=== PATIENT | male | born 1990 | race Caucasian/White ===

== ENCOUNTER 2019-11-22 09:09 | Inpatient (IN) | payer SELFPAY ==
[2019-11-22] MEDS ORDERED: Nitroglycerin 0.4 MG TAB (25 Tab Bottle) PO PRN (10:17)
[2019-11-22] MEDS ORDERED: Senokot S 8.6-50 MG TAB PO PRN (10:18)
[2019-11-22] MEDS ORDERED: Calcium Carbonate 500 MG ChewTAB PO PRN (10:18)
[2019-11-22] MEDS ORDERED: Acetaminophen 325 MG TAB PO PRN (10:18)
[2019-11-22] MEDS ORDERED: cloNIDine 0.1 MG TAB PO PRN (10:19)
[2019-11-22] MEDS ORDERED: Metoprolol Tartrate 25 MG TAB PO SCH (10:30)
[2019-11-22] MEDS ORDERED: Metoprolol Tartrate 5 MG/5 ML VIAL ONE (10:43)
[2019-11-22] MEDS ORDERED: Insulin Regular 300 UNITS/3 ML VIAL ONE (10:43)
[2019-11-22 10:45] LABS: Anion Gap 15 mmol/L (10-20); BUN (Urea Nitrogen) 12 mg/dL (8.9-20.6); Calc. Creatinine Clearance 0 mL/min (70-130); Calcium 9.1 mg/dL (7.8-10.44); Carbon Dioxide 23 mmol/L (22-29); Chloride 105 mmol/L (98-107); Estimated GFR-MDRD 85; Glucose 282 mg/dL (70-105); Magnesium 1.8 mg/dL (1.6-2.6); Potassium 4.2 mmol/L (3.5-5.1); Sodium 139 mmol/L (136-145)
[2019-11-22] MEDS ORDERED: Insulin Regular 300 UNITS/3 ML VIAL SC PRN ×2 (10:46)
[2019-11-22] MEDS ORDERED: Dextrose 50% Abboject 50 ML SYRINGE SLOW IVP PRN (10:46)
[2019-11-22] MEDS ORDERED: Dextrose 5% in Water 1,000 ML IV PRN (10:46)
[2019-11-22 10:49] LABS: Troponin I 0.108 ng/mL (< 0.028)
[2019-11-22] MEDS ORDERED: Aspirin 325 mg Enteric Coated Tablet PO SCH (11:00)
[2019-11-22] MEDS ORDERED: Magnesium 2 GM/50 ML 2 GM in Premix Bag 1 BAG IVPB SCH (11:15)
[2019-11-22 12:19] VITALS: BMI 54.3
--- NOTE | 2019-11-22 18:14 | HP ---
PRIMARY CARE: Dr. Toi Jose. CHIEF COMPLAINT: Chest discomfort. HISTORY OF PRESENT ILLNESS: The patient is a 29-year-old male with paroxysmal supraventricular tachycardia, status post ablation in 2013 at [place], presented to the emergency room at [facility] with above complaints. The patient presented to the emergency room around 7:00 am with chest discomfort that was gradual in onset, associated with diaphoresis and palpitations. He was short of breath on mild exertion. He felt lightheaded, however denies any syncope. He denies recent immobilization, travel, cough, fever, or heartburn. No recent immobilization or travel reported. In the emergency room, his workup was consistent with narrow complex tachycardia with heart rate of 283, requiring emergent cardioversion. He is currently in sinus rhythm. He received aspirin along with IV fluids in the emergency room. He was transferred to this facility for hospital admission. PAST MEDICAL HISTORY: 1. Paroxysmal supraventricular tachycardia, status post ablation in 2013 at [place]. 2. Diabetes mellitus type 2, currently not on any medication. 3. History of muscular dystrophy. PAST SURGICAL HISTORY: Cardiac ablation in 2013. ALLERGIES: PENICILLIN. CURRENT HOME MEDICATIONS: Reviewed with the patient and none. SOCIAL HISTORY: The patient denies any drug use. He drinks alcohol socially. He currently uses tobacco. He has smoked on and off for last 10 years. FAMILY HISTORY: Positive for cancer. No premature coronary artery disease in his family. REVIEW OF SYSTEMS: All other review of systems were reviewed and were found negative. PHYSICAL EXAMINATION: VITAL SIGNS: On ER arrival at [facility], temperature 98.1, respirations of 14, pulse rate of 284, with blood pressure of 124/95 with O2 saturation of 100% on room air. GENERAL: A 29-year-old male, in no apparent distress. Denies any chest discomfort at this time. HEENT: Head, atraumatic and normocephalic. Sclerae anicteric. No oral lesion. NECK: Supple. No JVD. No carotid bruit. LUNGS: Clear to auscultation bilaterally. No wheezing, rales, or rhonchi. HEART: S1 and S2 present. Regular rate and rhythm. No significant rubs or gallops. ABDOMEN: Soft, nontender. Bowel sounds present. EXTREMITIES: No edema or calf tenderness. NEUROLOGICAL: Grossly nonfocal. Moves all 4 extremities. PSYCHIATRY: Alert, awake, and oriented x3. SKIN: Warm and dry. LYMPH NODES: No palpable lymph nodes in the neck. PERIPHERAL VASCULAR: Radial pulses palpable bilaterally. MUSCULOSKELETAL: No joint swelling tenderness. LABORATORY FINDINGS: CBC showed WBC 15.9 without left shift. Hemoglobin was 16.7, hematocrit 49.6. PT, INR, PTT normal range. Chemistries showed sodium of 139, potassium 3.4, chloride 98, bicarb 24, BUN of 13, creatinine 1.38, glucose of 323. Troponin initially was negative, repeat troponin was 0.108. Magnesium was 1.8. Urine drug screen was negative. IMAGING STUDIES: Chest x-ray by my review was negative for infiltrate or edema. EKG by my review as discussed above. IMPRESSION: 1. Narrow complex tachycardia, status post cardioversion. 2. Acute kidney injury on chronic kidney disease stage 2. 3. Hypokalemia. 4. Type 2 myocardial infarction secondary to #1. 5. Diabetes mellitus type 2, currently not taking any medications. 6. Morbid obesity with a BMI of 54.4. 7. Leukocytosis, unlikely to be infectious. 8. Hypomagnesemia. PLAN: The patient will be monitored on the telemetry unit. We will start low-dose beta blockers. Replace magnesium. His renal function has improved after IV fluids. The patient is tolerating p.o. Echocardiogram will be obtained. We will recheck troponin in a.m. We will check electrolytes in a.m. The patient understands the above plan of care. Job ID: [id number]
[2019-11-22] MEDS: Metoprolol Tartrate 25 MG TAB PO SCH (20:10)
--- NOTE | 2019-11-22 22:48 | CON ---
DATE OF CONSULTATION: PRIMARY CARE PHYSICIANS: Dr. Jose; the patient's primary care doctor here is going to be Dr. Jocelyn Mcconnell. REASON FOR CONSULTATION: Status post SVT and cardioversion. HISTORY OF PRESENT ILLNESS: Mr. Cazares is a 29-year-old male with a significant history of paroxysmal supraventricular tachycardia, status post ablation in 2013 at [place], hypothyroidism, diabetes. According to the patient, he was doing well since the ablation, but this morning, around 7 o'clock, the patient presented to the emergency department for chest tightness with shortness of breath. The patient was found to have heart rate up to 280s. The patient underwent emergent cardioversion. The patient was converted back to sinus rhythm at this moment. According to the patient, he has not had follow up with any associate professor of literacy or EP doctor since the cardioversion. He does not take any medication. At this moment, he does not check a vital sign at home. At this moment, the patient denied any shortness of breath, palpitation, fluttering, chest tightness, or discomfort, or any other cardiac complaints. The patient had echocardiograms done today with EF 55% to 60%, moderately dilated left atrium, trace tricuspid regurgitation, and mild pulmonary regurgitation. The patient cannot recall whether the patient had any other cardiac workup in the past except ablation in 2013. PAST MEDICAL HISTORY: Paroxysmal supraventricular tachycardia, status post ablation in 2013 at [place], diabetes type 2 and hypothyroidism. According to the patient, the patient had a TSH done about 5 months ago by the primary care doctor, which was normal according to the patient. PAST SURGICAL HISTORY: SVT ablation in 2013 at [place], groin hernia repair when the patient was around 8 years old. FAMILY HISTORY: There is significant family history of diabetes in the paternal side. The patient's mother due to complication of heart disease at the age of around 50s. SOCIAL HISTORY: He is . He is living with his girlfriend at this moment. He has 2 children, who are living well. He is current smoker and chewing tobacco. He drinks 8 to 15 beers on weekend. He denied illicit drug abuse. He does not exercise. He drinks 1 cup of coffee a day and 32 ounces of soda a day. ALLERGIES: HE IS ALLERGIC TO PENICILLIN. MEDICATIONS: He does not take any medication at this moment. REVIEW OF SYSTEMS: 12-point review of systems negative unless otherwise mentioned in the HPI. PHYSICAL EXAMINATION: VITAL SIGNS: Blood pressure 121/66, temperature 97.8, pulse is 61, respiratory rate is 12, O2 saturation 96% with room air. GENERAL: The patient is alert and oriented x4, not in acute distress. HEENT: Normocephalic, atraumatic. EYES: Extraocular muscle movement intact. ENT AND MOUTH: Oral and nasal mucosa moist without lesion. NECK: Supple. Normal range of motion. No JVD. RESPIRATORY: Clear to auscultate bilaterally. No wheezing, rales, or rhonchi noted. CARDIOVASCULAR: Regular rate and rhythm. Normal S1, S2. There are no S3 or S4. No significant murmur, hives, or thrill noted. 2+ pulses in the bilateral upper and lower extremities. No edema in the lower extremities. Carotid pulses are present without thrill. ABDOMEN: Soft, nontender. No mass to palpitate. Bowel sounds are present. MUSCULOSKELETAL: The patient able to move all extremities without any difficulty. The patient denied claudication. SKIN: Warm and dry. No lesion, rash, or erythema noted. NEUROLOGIC: The patient is alert and oriented x4, nonfocal. PSYCHIATRIC: The patient's mood is appropriate, but very sleepy because the patient was drinking last night per patient. LABORATORY DATA: WBC 15.8, hemoglobin 16.7, hematocrit 49.6, platelets 429. Sodium 139, potassium 4.2, BUN 12, creatinine 1.02, glucose 282. Magnesium 1.8. AST 57, ALT 65. Creatine kinase 251. Troponin 0.108, negative. BNP is 15.6, albumin is 4.6. UA is negative except glucose is more than 500. Drug screening is negative. Chest x-ray shows no acute cardiopulmonary process. ASSESSMENT AND PLAN: 1. Paroxysmal supraventricular tachycardia with status post cardioversion today. The patient has remained in sinus rhythm at this moment. He is on aspirin 81 mg once a day. The patient is on diltiazem 30 mg p.o. every 6 hours as needed if heart rate more than 120s. He is on metoprolol 25 mg twice a day also. We would like to continue to monitor and we would like to go ahead to order EP consult for this patient for further evaluation and treatment. 2. Diabetes type 2, which is managed by primary care doctors. 3. Hypothyroidism. Although the patient has a history of hypothyroidism, he has not taken any thyroid medicine, which may be causing abnormal arrhythmia. We would like to go ahead to check the patient's thyroid function also during this admission. 4. Current smoker and ETOH abuse. Strongly recommend to stop tobacco and EtOH abuse cessation. Thank you very much for Cardiology Service to participate in the care of this patient. We will follow along the patient's care team and make further recommendation as needed. Job ID: [id number]
--- NOTE | 2019-11-23 01:47 | CON ---
DATE OF CONSULTATION: 11/22/2019 INDICATION FOR CONSULTATION: A 29-year-old patient with a history of paroxysmal supraventricular tachycardia in the past who has undergone ablation in 2013 after having an episode of supraventricular tachycardia. At that time, he had been drinking alcohol, he presented to the emergency room, required 2 shocks and then apparently the next day underwent ablation of the SVT. He has not had any significant problems since that time. He does note some occasional little burps with his irregular heart rate or rapid rate at times, but otherwise he had been doing very well since 2013 until early this morning. He had actually been drinking some energy drinks yesterday. He smoked half a pack cigarettes every about 6 or 8 hours and also was drinking alcohol in the form of beer. He then apparently was during intercourse noticed his heart was beating really rapid and did not slow down and presented to the emergency room, was noted again to be in SVT. At that time, he requests that he be shocked out of the SVT and he underwent a shock at that time and converted back to sinus rhythm. Unfortunately, he has lost his job recently, he has been out of work, he has not been taking his medications. He does have metformin, which he has been taking for his diabetes and also was taking I believe Synthroid for his hypothyroidism. He has not been taking either of these medications recently and actually with the associated stress, lack of medications, tobacco abuse, alcohol and exertion all these added up to again trigger his supraventricular tachycardia. Otherwise, he is stable at this time and has had no other complaints. He said his skin felt tight during some of the SVT and he does have a history of tobacco abuse and some risk factors of coronary artery disease and says that he is a diabetic, but he has not had any recent stress test. He will undergo an echocardiogram for evaluation of his left ventricular systolic function as well as to any other structural abnormalities that may be present. PAST MEDICAL HISTORY: Please refer the notes dictated by the nurse practitioner. PAST SURGICAL HISTORY: Please refer the notes dictated by the nurse practitioner. MEDICATIONS: Please refer the notes dictated by the nurse practitioner. ALLERGIES: PLEASE REFER THE NOTES DICTATED BY THE NURSE PRACTITIONER. FAMILY HISTORY: Please refer the notes dictated by the nurse practitioner. REVIEW OF SYSTEMS: Please refer the notes dictated by the nurse practitioner. We have seen tis patient, we have discussed this patient together and I would agree with the assessment and plan. PHYSICAL EXAMINATION: GENERAL: Reveals a well-developed, well-nourished, overweight gentleman who is in no acute distress at this time. He is alert, he is oriented. VITAL SIGNS: Stable, 121/66 blood pressure, heart rate is 61 and regular, respiratory rate is 12. He is afebrile. O2 saturation is 96%. HEENT: Unremarkable. HEAD: Normocephalic and atraumatic. NECK: Carotid pulses are present. There were no bruits. There is no JVD. The thyroid is not enlarged. ENT: Oral mucosa was pink and moist. CHEST: Clear. CARDIOVASCULAR: Reveals a regular rate and rhythm. There were no gross murmurs, heaves, thrills, bruits, or rubs noted. ABDOMEN: Obese with positive bowel sounds. No organomegaly or masses are noted. EXTREMITIES: Femoral pulses are present. No clubbing, cyanosis, or edema. Pedal pulses are present. IMAGING: EKG at this time shows a normal sinus rhythm. There were no acute changes noted. He does have some evidence of possible left ventricular hypertrophy. His tracings from the emergency room when he was in SVT appeared to be definitely an SVT. It showed a heart rate of almost 300 beats per minute with the heart rate extremely at 282 beats per minute with his SVT. One of the original EKGs from this morning at 6:53 a.m., the original EKG is 283 beats per minute, it showed what appeared to be almost a wide-complex tachycardia, but it could be a bundle branch block associated with a rapid ventricular response. We will discuss this patient with the tech intern, but in the meantime, hopefully if he remains stable, he can be discharged home tomorrow on medications and can follow up as an outpatient with tech intern, if at all possible. However, he may need to undergo further evaluation while he is here in the hospital. We will see how he does over the next 24 hours. Once he converted out of the SVT, the complexes returned to normal without evidence of ischemia. He was on metoprolol 25 mg b.i.d., we will continue this medication and actually he is not on anything for his diabetes at this time except for a sliding scale. We will need to resume some type of medication as well as he is taking an aspirin at this time. We may need to increase the dose of the metoprolol, if his blood pressure tolerates it. We will await the results of the echocardiogram and will re-evaluate the patient tomorrow morning. Job ID: [id number]
[2019-11-23 04:54] LABS: Anion Gap 13 mmol/L (10-20); BUN (Urea Nitrogen) 11 mg/dL (8.9-20.6); Calc. Creatinine Clearance 242 mL/min (70-130); Calcium 8.9 mg/dL (7.8-10.44); Carbon Dioxide 25 mmol/L (22-29); Chloride 105 mmol/L (98-107); Estimated GFR-MDRD Greater than 90; Glucose 147 mg/dL (70-105); Sodium 139 mmol/L (136-145)
[2019-11-23 05:19] LABS: CKMB 6.5 ng/mL (0-6.6)
[2019-11-23] MEDS ORDERED: metFORMIN 500 MG TAB PO SCH (08:00)
[2019-11-23] MEDS: Metoprolol Tartrate 25 MG TAB PO SCH (08:41)
[2019-11-23] MEDS ORDERED: Aspirin 81 mg Enteric Coated Tablet PO SCH (09:00)
[2019-11-23] MEDS ORDERED: FLU VACC QS2019-20(6MOS UP)/PF 60 MCG/0.5 ML SYRINGE IM ONE (09:00)
[2019-11-23] MEDS ORDERED: Levothyroxine Sodium 50 MCG TAB PO SCH (09:00)
[2019-11-23] MEDS ORDERED: Aspirin 325 mg Enteric Coated Tablet PO SCH (09:00)
--- NOTE | 2019-11-23 10:56 | PDOC.HOSPP ---
- Subjective Encounter Date: 11/23/19 Encounter Time: 09:00 Subjective: Patient seen and examined for SVT. No CP/palpitations. No new complaints. No overnight events - Objective Vital Signs & Weight: Vital Signs (12 hours) Temp Pulse Resp BP BP BP Pulse Ox 11/23/19 07:39 96.7 F L 57 L 14 105/64 94 L 11/23/19 04:40 97.5 F L 65 14 120/56 L 94 L 11/22/19 23:25 97.7 F 67 16 104/60 95 Weight Weight 317 lb Result Diagrams: 11/23/19 04:12 Additional Labs: Accuchecks 11/23/19 11/22/19 11/22/19 04:48 20:28 16:38 POC Glucose 144 H 139 H 116 H 11/22/19 11/22/19 12:36 10:03 POC Glucose 236 H 298 H Laboratory Tests 11/23/19 11/23/19 11/23/19 04:12 04:12 04:12 Troponin I 0.052 H Free T4 0.64 L TSH 3rd Generation 24.8168 H EKG Reviewed by me: Yes (Tele SB) Hospitalist ROS - Review of Systems Cardiovascular: denies: chest pain, palpitations, orthopnea, paroxysmal noc. dyspnea, edema, light headedness, other Gastrointestinal: denies: nausea, vomiting, abdominal pain, diarrhea, constipation, melena, hematochezia, other - Medication Medications: Active Medications Generic Name Dose Route Start Last Admin Trade Name Freq PRN Reason Stop Dose Admin Aspirin 81 mg 11/23/19 09:00 11/23/19 08:40 Ecotrin PO 81 mg DAILY EMILEE Administration Metformin HCl 500 mg 11/23/19 08:00 11/23/19 08:40 Glucophage PO 500 mg BID-WM EMILEE Administration Metoprolol Tartrate 25 mg 11/22/19 21:00 11/23/19 08:41 Lopressor PO 25 mg BID EMILEE Administration - Exam General Appearance: NAD Heart: RRR, no gallops Respiratory: no wheezes, no rales, no ronchi Gastrointestinal: non-tender, non-distended Extremities: no cyanosis Hosp A/P - Plan DVT proph w/SCDs 1. Narrow complex tachycardia, status post cardioversion. 2. Acute kidney injury on chronic kidney disease stage 2. 3. Hypokalemia. 4. Hypothyroidism 5. Diabetes mellitus type 2, currently not taking any medications. 6. Morbid obesity with a BMI of 54.4. 7. Leukocytosis, unlikely to be infectious. 8. Hypomagnesemia. 9. Type 2 myocardial infarction secondary to #1. PLAN: Cont Metoprolol Start low dose Levothyroxine Cardio input appreciated Cont other mes
--- NOTE | 2019-11-23 15:11 | PDOC.CPN ---
- Subjective Date: 11/23/19 Time: 15:18 Interval history: The pt seen and examined. No overnight events. No cardiac complaints. - Objective Allergies/Adverse Reactions: Allergies Allergy/AdvReac Type Severity Reaction Status Date / Time Penicillins Allergy Verified 11/22/19 12:17 Visit Medications: Current Medications Acetaminophen (Tylenol) 650 mg PO Q4H PRN PRN Reason: Headache/Fever/Mild Pain (1-3) Aspirin (Ecotrin) 81 mg PO DAILY [facility] Last Admin: 11/23/19 08:40 Dose: 81 mg Calcium Carbonate (Tums) 1,000 mg PO Q4H PRN PRN Reason: Heartburn or Indigestion Clonidine (Catapres) 0.1 mg PO Q4H PRN PRN Reason: SBP Greater Than 180 Dextrose/Water (Dextrose 50%) 25 gm SLOW IVP PRN PRN PRN Reason: Hypoglycemia Diltiazem HCl (Cardizem) 30 mg PO Q6H PRN PRN Reason: HR >120 sustained Glucagon (Glucagon) 1 mg IM PRN PRN PRN Reason: Hypoglycemia Dextrose/Water (D5w) 1,000 mls @ 0 mls/hr IV .Q0M PRN PRN Reason: Hypoglycemia Insulin Human Regular (Humulin R) 0 units SC .MODERATE SLIDING SC PRN PRN Reason: Moderate Correctional Scale Insulin Human Regular (Humulin R) 0 units SC .BEDTIME SLIDING SC PRN PRN Reason: Bedtime Correctional Scale Levothyroxine Sodium (Synthroid) 50 mcg PO 0600 [facility] Metformin HCl (Glucophage) 500 mg PO BID-[facility] Last Admin: 11/23/19 08:40 Dose: 500 mg Metoprolol Tartrate (Lopressor) 25 mg PO BID [facility] Last Admin: 11/23/19 08:41 Dose: 25 mg Nitroglycerin (Nitrostat) 0.4 mg PO Q5MIN PRN PRN Reason: Chest Pain Senna/Docusate Sodium (Senokot S) 2 tab PO BIDPRN PRN PRN Reason: Constipation Sodium Chloride (Flush - Normal Saline) 10 ml IVF PRN PRN PRN Reason: Saline Flush Vital Signs & Weight: Vital Signs Temp Pulse Resp BP BP Pulse Ox 11/23/19 12:00 98.7 F 60 14 109/64 94 L 11/23/19 07:39 96.7 F L 57 L 14 105/64 94 L 11/23/19 04:40 97.5 F L 65 14 120/56 L 94 L Weight 317 lb - Physical Exam General: alert & oriented x3 HEENT: mucus membranes moist Neck: supple neck Cardiac: regular rate and rhythm, S1/S2 Lungs: clear to auscultation Extremities: no edema - Labs Result Diagrams: 11/23/19 04:12 Troponin/CKMB CK-MB (CK-2) 6.5 ng/mL (0-6.6) 11/23/19 04:12 Troponin I 0.052 ng/mL (< 0.028) H 11/23/19 04:12 - Telemetry Sinus rhythms and dysrhythmias: sinus rhythm - Assessment/Plan Assessment/Plan: 1. Narrow complex tachycardia with s/p cardioversion - remains in SR with Metoprolol 25mg BID and ASA. 2. Hx of SVT with RFA in 2012 at [facility] 3. Hypothyroidism - Levothyroxin was started from this AM 4. DM type 2 - managed by PCP 5. Obese MAR reviewed * Echo on 11/22/2019 with EF 55-60%, mod dilated LA, trace TR and mild [place]. * From Cardiac standpoint, the pt is stable d/c home. The pt must f/u with his Dental Mold Maker or PCP in 1wk.
[2019-11-23 17:44] VITALS: BP 140/70; TEMP 98.5
[2019-11-24] MEDS ORDERED: Levothyroxine Sodium 50 MCG TAB PO SCH (06:00)
--- NOTE | 2019-11-25 14:26 | DIS ---
DATE OF ADMISSION: 11/22/2019 DATE OF DISCHARGE: 11/23/2019 DISCHARGE DISPOSITION: Home. FOLLOWUP: 1. Follow up with Dr. Toi Jose in 1 week. 2. Follow up with Electrophysiology, Dr. Meyers in 1 week. 3. Follow up Primary Cardiology in 1 to 2 weeks. ALLERGIES: PENICILLIN. SIGNIFICANT LABORATORY DATA: Maximum troponin was 0.108. TSH was 24, free T4 was 0.6. Urine drug screen was negative. BRIEF HOSPITAL COURSE: The patient is a 29-year-old male with paroxysmal supraventricular tachycardia, status post ablation in 2012 at [place]. He presented to the hospital with chest discomfort along with palpitations. His workup was consistent with supraventricular tachycardia with heart rate in 280s. He was cardioverted in the emergency room. He remained in sinus rhythm throughout this hospital stay. He has been started on low-dose beta blockers. He was evaluated by Cardiology, Dr. Mcconnell, as well. Echocardiogram showed ejection fraction of 55% to 60% with mild pulmonic regurgitation, trace tricuspid regurgitation, and moderately dilated left atrium. The patient has been cleared by Cardiology for discharge. He was advised to follow up with Electrophysiology as outpatient. FINAL DIAGNOSES: 1. Narrow complex tachycardia, status post cardioversion. 2. Acute kidney injury on chronic kidney disease stage 2, resolved. 3. Hypokalemia, replaced. 4. Type 2 myocardial infarction, present on admission, resolved. 5. Diabetes mellitus type 2, currently not taking medications. 6. Hypothyroidism. His TSH was 24.8 with free T4 of 0.64. The patient was advised to be compliant with levothyroxine. 7. Hypomagnesemia, replaced. 8. Morbid obesity with a BMI of 54.4. 9. Leukocytosis, unlikely to be infectious. Job ID: [id number]
== END 2019-11-23 17:48 | disposition home or self-care (01) | DRG 281 ==
LOC: ERS 09:09 → 2NO 11:56
PROVIDERS: ADMIT Internal Medicine; ATTEND Internal Medicine
DX: I47.1 Supraventricular tachycardia (principal); I21.A1 Myocardial infarction type 2; Z68.43 Body mass index [BMI] 50.0-59.9, adult; N17.9 Acute kidney failure, unspecified; I45.89 Other specified conduction disorders; E03.9 Hypothyroidism, unspecified; E66.9 Obesity, unspecified; N18.2 Chronic kidney disease, stage 2 (mild); E11.22 Type 2 diabetes mellitus with diabetic chronic kidney disease; E87.6 Hypokalemia; E66.01 Morbid (severe) obesity due to excess calories; D72.829 Elevated white blood cell count, unspecified; E83.42 Hypomagnesemia; F17.220 Nicotine dependence, chewing tobacco, uncomplicated; F10.10 Alcohol abuse, uncomplicated; Z88.0 Allergy status to penicillin
CPT/HCPCS: 36415; 36416; 80048; 82553; 83735; 84439; 84443; 84484; 93005; 93306; 94760; J1815; J3475